=== PATIENT | female | born 1995 | race Caucasian/White ===

== ENCOUNTER 2016-10-02 02:57 | Emergency (ER) | payer BC ==
[2016-10-02 03:03] VITALS: BP 117/75; PULSE 87; RESP 18; TEMP 98.6
--- NOTE | 2016-10-02 03:24 | XR ---
EXAM: XR Left Foot Complete, 3 or More Views CLINICAL HISTORY: Pain. TECHNIQUE: Frontal, lateral and oblique views of the left foot. COMPARISON: No relevant prior studies available. FINDINGS: Bones/joints: Unremarkable. No acute fracture. No dislocation. Soft tissues: Unremarkable. No radiopaque foreign body. IMPRESSION: Normal left foot x-rays.
--- NOTE | 2016-10-02 03:32 | ED ---
Lower Extremity Injury HPI - General Chief Complaint: Extremity Injury, Lower Stated Complaint: foot pain Time Seen by Provider: 10/02/16 03:04 Source: patient, RN notes reviewed Mode of arrival: ambulatory Limitations: no limitations - History of Present Illness Initial Comments: 21-year-old female presents emergency Department chief complaint of left foot injury. Patient states that she developed of attack and injured her foot. This happened approximately 6 hours ago. Patient complains of diffuse for pain. Patient states that she tried supraorbital states she woke up and pain. Patient denies any previous fractures no bruising minimal swelling. - Related Data Home Medications Medication Instructions Recorded Confirmed FLUoxetine HCL [PROzac] 1 tab PO DAILY 10/02/16 10/02/16 Previous Rx's Medication Instructions Recorded Ibuprofen [Motrin] 600 mg PO Q8HR PRN #30 tab 10/02/16 Allergies Allergy/AdvReac Type Severity Reaction Status Date / Time No Known Allergies Allergy Verified 10/02/16 03:03 Review of Systems ROS Statement: Those systems with pertinent positive or pertinent negative responses have been documented in the HPI. ROS Other: All systems not noted in ROS Statement are negative. Past Medical History Past Medical History: No Reported History History of Any Multi-Drug Resistant Organisms: None Reported Past Surgical History: No Surgical Hx Reported Past Psychological History: Anxiety, Depression Smoking Status: Never smoker Past Alcohol Use History: Occasional Past Drug Use History: None Reported General Exam Limitations: no limitations General appearance: alert, in no apparent distress Respiratory exam: Present: normal lung sounds bilaterally. Absent: respiratory distress, wheezes, rales, rhonchi, stridor Cardiovascular Exam: Present: regular rate, normal rhythm, normal heart sounds. Absent: systolic murmur, diastolic murmur, rubs, gallop, clicks Extremities exam: Present: other (Left foot there is diffuse tenderness over the metatarsals minimal swelling no ecchymosis neurovascular intact no ankle tenderness) Course Vital Signs 10/02/16 03:00 Temperature 98.6 F Pulse Rate 87 Respiratory 18 Rate Blood Pressure 117/75 O2 Sat by Pulse 98 Oximetry Medical Decision Making - Medical Decision Making 21-year-old female presented for left foot injury. Patient has no acute fracture. Patient will be discharged at this time return parameters were discussed. Disposition Clinical Impression: Sprain of left foot Disposition: HOME SELF-CARE Condition: Stable Instructions: Foot Sprain (ED) Additional Instructions: Please return to the Emergency Department if symptoms worsen or any other concerns. Prescriptions: Ibuprofen [Motrin] 600 mg PO Q8HR PRN #30 tab PRN Reason: Pain Referrals: Nonstaff,Physician [Primary Care Provider] - 1-2 days Time of Disposition: 03:31
[2016-10-02] MEDS ORDERED: Acetaminophen-Codeine 300-30mg TAB PO STA (03:33)
== END 2016-10-02 03:45 | disposition home or self-care (01) ==
LOC: EC 02:57
DX: S93.602A Unspecified sprain of left foot, initial encounter (principal); F41.9 Anxiety disorder, unspecified; F32.9 Major depressive disorder, single episode, unspecified; Z79.899 Other long term (current) drug therapy; X58.XXXA Exposure to other specified factors, initial encounter; Y93.39 Activity, other involving climbing, rappelling and jumping off
CPT/HCPCS: 99283